=== PATIENT | female | born 1975 | race Caucasian/White ===

== ENCOUNTER 2022-10-08 16:08 | Outpatient (CLI) | payer OTHER, SELFPAY ==
[2022-10-08 11:12] LABS: Albumin* 4.5 g/dL (3.3-5.0); Chloride* 103 mmol/L (96-114); Sodium* 139 mmol/L (135-149)
[2022-10-08 11:13] LABS: Potassium* 4.4 mmol/L (3.6-5.1)
[2022-10-08 11:15] LABS: Alanine Aminotransferase* 20 U/L (4-35); Alkaline Phosphatase* 54 U/L (40-150); Aspartate Amino Transferase* 26 U/L (12-35); Bilirubin Total* 0.6 mg/dL (0.1-1.5); Blood Urea Nitrogen* 11 mg/dL (5-24); Calcium* 9.4 mg/dL (8.4-10.6); Carbon Dioxide* 28 mmol/L (20-32); Cholesterol* 186 mg/dL (90-199); Creatinine* 0.8 mg/dL (0.5-1.5); Estimated Glomerular Filt Rate 93 ml/min; Glucose* 103 mg/dL (60-115); Total Protein* 7.1 g/dL (6.0-8.3); Triglycerides* 86 mg/dL (40-149)
[2022-10-08 11:16] LABS: HDL Cholesterol* 85 mg/dL (>=50); LDL Cholesterol Calculated 84 mg/dL (<100)
== END 2022-10-08 16:09 | disposition home or self-care (01) ==
PROVIDERS: PCP Family Medicine; Visit Provider Family Medicine
DX: Z01.419 Encounter for gynecological examination (general) (routine) without abnormal findings (principal); R73.01 Impaired fasting glucose; Z13.6 Encounter for screening for cardiovascular disorders
CPT/HCPCS: 80053; 80061

== ENCOUNTER 2022-11-11 11:59 | Outpatient (CLI) | payer OTHER, SELFPAY ==
--- NOTE | 2022-11-11 13:53 | W.ANESCHARGE ---
Anesthesia Charges Start Date/Time Anesthesia Start Date: 11/11/22 Anesthesia Start Time: 13:24 Stop Date/Time Anesthesia Stop Date: 11/11/22 Anesthesia Stop Time: 13:49
--- NOTE | 2022-11-11 14:14 | W.ANESCHARGE ---
Anesthesia Charges Start Date/Time Anesthesia Start Date: 11/11/22 Anesthesia Start Time: 13:24 Stop Date/Time Anesthesia Stop Date: 11/11/22 Anesthesia Stop Time: 13:49
== END 2022-11-11 12:00 | disposition home or self-care (01) ==
PROVIDERS: PCP Family Medicine; Visit Provider Surgery
DX: Z12.11 Encounter for screening for malignant neoplasm of colon (principal); K63.5 Polyp of colon; K64.9 Unspecified hemorrhoids
CPT/HCPCS: 00811; 45385; 88305; 99153; J1200; J2250; J3010; J3490

== ENCOUNTER 2022-12-21 14:28 | Outpatient (CLI) | payer OTHER, SELFPAY ==
--- NOTE | 2022-12-21 14:40 | CRLHL7_ITS ---
For Patients: As a result of the Cures Act, medical imaging exams and procedure reports are released immediately into your electronic medical record. You may view this report before your referring provider. If you have questions, please contact your health care provider. BILATERAL SCREENING MAMMOGRAM WITH COMPUTER-AIDED DETECTION AND TOMOSYNTHESIS TECHNIQUE: CC and MLO views were obtained. These mammographic images have been obtained using full-field digital technique. These mammographic images were interpreted with the benefit of computer-aided detection. Breast Tomosynthesis was used in this interpretation. COMPARISON FILM: 03/03/21, 08/22/19, 08/01/18. FINDINGS: The breasts are extremely dense, which lowers the sensitivity of mammography IMPRESSION: There is no radiographic evidence for malignancy. ASSESSMENT: BI-RADS Category 2: Benign RECOMMENDATION: Routine screening mammogram in 1 year. A lay language report of this examination will be provided to the patient. Byron Kamara M.D. Diagnostic Radiologist [email or web address] ANDREY/rao / be/Dictated by: Byron Kamara MD @ 12/22/2022 12:38:00 PM (Electronically Signed)
== END 2022-12-21 14:29 | disposition home or self-care (01) ==
LOC: MAMMO 14:29
PROVIDERS: PCP Family Medicine; Visit Provider Family Medicine
DX: Z12.31 Encounter for screening mammogram for malignant neoplasm of breast (principal); R92.2 Inconclusive mammogram
CPT/HCPCS: 77063; 77067

== ENCOUNTER 2023-11-08 08:32 | Outpatient (CLI) | payer BC, SELFPAY ==
--- OUTSIDE RECORDS SUMMARY | 2023-11-08 08:34 | XMS_ITS | Clinical Summary ---
Author Name Unknown Organization [facility] Address [place], [place] [address] Care Team Providers Care Energy Economist Name Role Phone Pcp, No Unavailable Unavailable Sumanth Sharp MD Primary Care Provider [phone] Allergies Active Allergy Reactions Criticality Noted Date Comments Sulfa (Sulfonamide Antibiotics) Rash Low 07/12 Medications Medication Sig Dispensed Refills Start Date End Date Status HYDROcodone-acetamin ophen, 5-325 mg, (NORCO) per tabletIndications:Ri ght ureteral laceration, initial encounter Take 1-2 tablets by mouth every 4 hours if needed for Pain (For moderate pain.) Max acetaminophen dose: 4000 mg in 24 hrs. 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 Right ureteral laceration 06/29/2016 [place] (hard of hearing) 06/29/2016 Menorrhagia S/P hysterectomy 06/29/2016 Anemia 06/29/2016 Leukocytosis 06/29/2016 Family History Medical History Relation Name Comments Cancer Father unsure Arthritis Mother Hyperlipidemia Mother Hypertension Mother Relation Name Status Comments Father Mother Social History Tobacco Use Types Packs/Day Years Used Date Smoking Tobacco: Never Smokeless Tobacco: Never Tobacco Cessation:Counseling Given: Yes Alcohol Use Standard Drinks/Week Comments Yes 0 (1 standard drink = 0.6 oz pur e alcohol) 1 glass wine nightly Sex and Gender Information Value Date Recorded Sex Assigned at Not on file Gender Identity Not on file Sexual Orientation Not on file Obstetrics History Para Term AB IAB SAB Ectopic Multiple Livin g Live Births 2 2 2 Date Outcome GA Total Labor Labor/2nd/3rd Weight Sex Delivery Anes PTL Linsey A1 A5 Name Cl in M Farrah ng M Farrah ng Last Filed Vital Signs Vital Sign Reading Time Taken Comments Blood Pressure 110/74 03/01/2017 3:40 PM CDT Pulse 63 03/01/2017 3:40 PM CDT Temperature 37 ??C (98.6 ??F) 03/01/2017 3:40 PM CDT Respiratory Rate 16 07/09/2016 1:00 PM CDT Oxygen Saturation 99% 03/01/2017 3:40 PM CDT Inhaled Oxygen Concentration - - Weight 66.1 kg (145 lb 12.8 oz) 03/01/2017 3:40 PM CDT Height 162.6 cm (5' 4.02) 07/09/2016 8:46 AM CD T Body Mass Index 25.01 07/09/2016 8:46 AM CDT Plan of Treatment Health Maintenance Due Date Last Done Comments COVID-19 vaccine series (#1) 05/27/1977 Tdap 1987 Depression screening for age 12+ 1988 HIV for age 15-65 1991 BMI (ht and wt on same day) for age 18+ 1994 Hepatitis C screening for ag e 18-79 1994 Tetanus booster 1996 Pap test for age 21-65 04/08/2018 5, 04/08/2015 Colonoscopy through age 75 2021 Lipids for age 45-75 2021 Mammogram for age 45-75 2021 Influenza for age 9-49 06/10/2023 Pneumococcal series for age 6-64 Aged Out No longer eligible b ased on patient's age to complete this topic Advance Directives Latest Code Status on File Code Status Date Activated Date Inactivated Comments Full Code 06/29/2016 9:16 PM 07/01/2016 3:28 PM Care Teams Energy Economist Relationship Specialty Start Date End Date Sumanth Sharp MD . PCP - General Family Practice 07/13/16 Pcp, No . 11/09/13
--- NOTE | 2023-11-08 08:45 | CRLHL7_ITS ---
For Patients: As a result of the Cures Act, medical imaging exams and procedure reports are released immediately into your electronic medical record. You may view this report before your referring provider. If you have questions, please contact your health care provider. DIGITAL DIAGNOSTIC BILATERAL MAMMOGRAM USING TOMOSYNTHESIS AND COMPUTER-AIDED DETECTION RIGHT BREAST ULTRASOUND CLINICAL HISTORY: RIGHT breast lump. COMPARISON: 08/01/2018, 08/22/2019, 03/03/2021, 12/21/2022. TECHNIQUE: Digital BILATERAL mammogram in four projections. Tomosynthesis and CAD utilized. Real-time ultrasound imaging of BILATERAL breast with imaging documentation. Scanning was performed by both the technologist and the radiologist. BREAST COMPOSITION: The breasts are heterogeneously dense, which may obscure small masses. FINDINGS: 3D CC/MLO BILATERAL mammogram images submitted. Nodular density is present within the medial LEFT breast without architectural distortion. No suspicious findings RIGHT breast. No adenopathy or suspicious calcifications. Targeted LEFT breast ultrasound performed. At 8 o`clock 4 cm from the nipple there is a solid hypoechoic nodule measuring 9 x 4 x 7 millimeters. Targeted RIGHT breast ultrasound performed. At 12 o`clock 3 cm from the nipple there is a hypoechoic nodule measuring 8 millimeters. Surrounding dense tissue noted. IMPRESSION: Indeterminate hypoechoic nodular structures bilaterally. RECOMMENDATIONS: Ultrasound-guided core needle biopsy of each lesion. Results and recommendations discussed with the patient. BI-RADS Category 4: Suspicious A lay language report of this examination will be provided to the patient. Dictated by Byron Kamara MD @ 11/08/2023 9:52:08 AM jj/Dictated by: Byron Kamara MD @ 11/08/2023 9:52:00 AM (Electronically Signed)
--- NOTE | 2023-11-08 09:15 | CRLHL7_ITS ---
For Patients: As a result of the Cures Act, medical imaging exams and procedure reports are released immediately into your electronic medical record. You may view this report before your referring provider. If you have questions, please contact your health care provider. PLEASE SEE DIGITAL DIAGNOSTIC BILATERAL MAMMOGRAM PERFORMED SAME DAY CRL:[email or web address] timmons/Dictated by: Byron Kamara MD @ 11/08/2023 9:52:00 AM (Electronically Signed)
== END 2023-11-08 08:33 | disposition home or self-care (01) ==
LOC: MAMMO 08:32
PROVIDERS: PCP Family Medicine; Visit Provider Family Medicine
DX: N63.10 Unspecified lump in the right breast, unspecified quadrant (principal); N61.0 Mastitis without abscess; L53.9 Erythematous condition, unspecified; R92.2 Inconclusive mammogram
CPT/HCPCS: 76642; 77066; G0279

== ENCOUNTER 2023-11-14 08:59 | Outpatient (CLI) | payer BC, SELFPAY ==
--- OUTSIDE RECORDS SUMMARY | 2023-11-14 09:01 | XMS_ITS | Clinical Summary ---
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 PCP - General Family Practice 07/13/16 Pcp, No . 11/09/13
--- NOTE | 2023-11-14 09:15 | CRLHL7_ITS ---
For Patients: As a result of the Century Cures Act, medical imaging exams and procedure reports are released immediately into your electronic medical record. You may view this report before your referring provider. If you have questions, please contact your health care provider. ULTRASOUND-GUIDED BREAST BIOPSY AND POST-BIOPSY DIGITAL MAMMOGRAM FOR BIOPSY MARKER PLACEMENT CLINICAL HISTORY: Indeterminate hypoechoic nodular density. COMPARISON STUDIES: 11/08/2023. TECHNIQUE: Real-time ultrasound with image documentation was used for targeting the breast lesion. Core biopsy specimens were obtained using an automated gun with an 18-gauge biopsy needle. Post-biopsy CC and ML digital mammograms were obtained to document position of the biopsy marker. CONSENT and TIME OUT: The procedure, risks, and alternatives were explained to the patient and a consent was signed. [place] Protocol was followed including pre-procedure verification that relevant information/documentation was available, reviewed and properly matched to the patient; consent accurate and complete; and equipment and supplies available. Time Out was conducted just prior to starting procedure to verify the four required elements: patient identity, correct side/site marked (if applicable), procedure, relevant images/results properly labeled and displayed (if applicable). PROCEDURE: The patient was positioned supine on the ultrasound table. The breast was prepped with ChloraPrep. 8 cc of 1 percent lidocaine used for local anesthesia. Core samples were obtained. A sterile metal biopsy clip was placed percutaneously to jf the lesion position within the breast. The specimens were placed in 10% formalin and sent to the pathology department. Pressure was held on the biopsy site until all bleeding subsided. The skin incision was closed with Steri-Strips. An ice pack was positioned over the biopsy site. Post-biopsy instructions were reviewed with the patient, and a written copy was given to her. LATERALITY: LEFT breast. LESION: Hypoechoic nodular structure measuring 9 millimeters at 8 o`clock 4 cm from the nipple. SUSPICION FOR MALIGNANCY: Medium. NUMBER OF SAMPLES: 5. BIOPSY CLIP SHAPE: Oval. PROXIMITY OF CLIP TO TARGET: Within the lesion. IMPRESSION: Ultrasound-guided breast biopsy. When the pathology report is available, an addendum to this report will be made. ACR not applicable Dictated by Byron Kamara MD @ 11/15/2023 12:53:51 PM jj/Dictated by: Byron Kamara MD @ 11/15/2023 12:53:00 PM (Electronically Signed)
--- NOTE | 2023-11-14 10:15 | CRLHL7_ITS ---
For Patients: As a result of the Century Cures Act, medical imaging exams and procedure reports are released immediately into your electronic medical record. You may view this report before your referring provider. If you have questions, please contact your health care provider. ULTRASOUND-GUIDED BREAST BIOPSY AND POST-BIOPSY DIGITAL MAMMOGRAM FOR BIOPSY MARKER PLACEMENT CLINICAL HISTORY: Indeterminate palpable nodular density RIGHT breast. COMPARISON STUDIES: 11/08/2023. TECHNIQUE: Real-time ultrasound with image documentation was used for targeting the breast lesion. Core biopsy specimens were obtained using an automated gun with an 18-gauge biopsy needle. Post-biopsy CC and ML digital mammograms were obtained to document position of the biopsy marker. CONSENT and TIME OUT: The procedure, risks, and alternatives were explained to the patient and a consent was signed. [place] Protocol was followed including pre-procedure verification that relevant information/documentation was available, reviewed and properly matched to the patient; consent accurate and complete; and equipment and supplies available. Time Out was conducted just prior to starting procedure to verify the four required elements: patient identity, correct side/site marked (if applicable), procedure, relevant images/results properly labeled and displayed (if applicable). PROCEDURE: The patient was positioned supine on the ultrasound table. The breast was prepped with ChloraPrep. 8 cc of 1 percent lidocaine used for local anesthesia. Core samples were obtained. A sterile metal biopsy clip was placed percutaneously to jf the lesion position within the breast. The specimens were placed in 10% formalin and sent to the pathology department. Pressure was held on the biopsy site until all bleeding subsided. The skin incision was closed with Steri-Strips. An ice pack was positioned over the biopsy site. Post-biopsy instructions were reviewed with the patient, and a written copy was given to her. LATERALITY: RIGHT breast. LESION: Heterogeneous nodular region of tissue at 12 o`clock 3 cm from the nipple. SUSPICION FOR MALIGNANCY: Medium. NUMBER OF SAMPLES: 5. BIOPSY CLIP SHAPE: Oval. PROXIMITY OF CLIP TO TARGET: Within the lesion. IMPRESSION: Ultrasound-guided breast biopsy. When the pathology report is available, an addendum to this report will be made. ACR not applicable Dictated by Byron Kamara MD @ 11/15/2023 12:52:10 PM jj/Dictated by: Byron Kamara MD @ 11/15/2023 12:52:00 PM (Electronically Signed)
--- NOTE | 2023-11-14 10:45 | CRLHL7_ITS ---
For Patients: As a result of the Century Cures Act, medical imaging exams and procedure reports are released immediately into your electronic medical record. You may view this report before your referring provider. If you have questions, please contact your health care provider. PLEASE SEE ULTRASOUND-GUIDED LEFT BREAST BIOPSY PERFORMED SAME DAY CRL:[email or web address] timmons/Dictated by: Byron Kamara MD @ 11/15/2023 12:53:00 PM (Electronically Signed)
--- NOTE | 2023-11-14 11:00 | CRLHL7_ITS ---
For Patients: As a result of the Century Cures Act, medical imaging exams and procedure reports are released immediately into your electronic medical record. You may view this report before your referring provider. If you have questions, please contact your health care provider. PLEASE SEE ULTRASOUND-GUIDED RIGHT BREAST BIOPSY PERFORMED SAME DAY CRL:[email or web address] timmons/Dictated by: Byron Kamara MD @ 11/15/2023 12:52:00 PM (Electronically Signed)
== END 2023-11-14 09:00 | disposition home or self-care (01) ==
LOC: US 08:59
PROVIDERS: PCP Family Medicine; Visit Provider Family Medicine
DX: N63.20 Unspecified lump in the left breast, unspecified quadrant (principal); N63.11 Unspecified lump in the right breast, upper outer quadrant; D24.2 Benign neoplasm of left breast; R92.8 Other abnormal and inconclusive findings on diagnostic imaging of breast
CPT/HCPCS: 19083; 77065; 88305; A4648; A4649

== ENCOUNTER 2024-08-10 09:28 | Outpatient (CLI) | payer BC, SELFPAY ==
--- OUTSIDE RECORDS SUMMARY | 2024-08-10 09:30 | XMS_ITS | Clinical Summary ---
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 Right ureteral laceration 06/29/2016 [place] (hard of hearing) 06/29/2016 Menorrhagia S/P hysterectomy [...] Outcome GA Total Labor Labor/2nd/3rd Weight Sex Type Anes PTL Linsey A1 A5 Name Clin M Living M Living Last Filed Vital Signs Vital Sign Reading [...] Health Maintenance Due Date Last Done Comments Tdap 1987 Depression screening for age 12+ 1988 HIV for age 15-65 1991 BMI (ht and wt on same day) for age 18+ 1994 Hepatitis C screening for ag e 18-79 1994 Tetanus booster 1996 Pap test for age 21-65 04/08/2018 5, 04/08/2015 Colonoscopy through age 75 2021 Lipids for age 45-75 2021 Mammogram for age 45-75 2021 COVID-19 vaccine series (2023- season) 2024 Influenza for age 9-49 06/10/2024 Pneumococcal series for age 6-64 Aged Out No longer eligible b ased on patient's age to complete this topic Procedures Procedure Name Priority Date/Time Associated Diagnosis Comments WINE MAKER THIN PREP PAP SCREEN IMAGED Routine 04/08/2015 7:20 PM CDT from Last 3 Months or Most Recently Relevant to Health Maintenance Results * WINE MAKER THIN PREP PAP SCREEN IMAGED (04/08/2015 7:20 PM CDT) WINE MAKER CYTOLOGY See Anatomic Pathology case 04/13/2015 8:00 PM CDT [facility] Specimen (specimen) (Cervical/Vagina l) Client Collect / Unknown 04/08/2015 7:20 PM CDT 04/08/2015 7:20 PM CDT Sumanth Sharp MD PATHOLOGY/CYTOLOGY [facility] [address] [place] [address], from Last 3 Months or Most Recently Relevant to Health Maintenance Advance Directives * Full Code (Latest Code Status on File) Date Activated Date Inactivated Comments 06/29/2016 9:16 PM 07/01/2016 3:28 PM Care Teams Resident Care Supervisor Relationship Specialty Start Date End Date Sumanth Sharp MD . PCP - General Family Practice 07/13/16 Pcp, No . 11/09/13
--- NOTE | 2024-08-10 09:45 | CRLHL7_ITS ---
For Patients: As a result of the Century Cures Act, medical imaging exams and procedure reports are released immediately into your electronic medical record. You may view this report before your referring provider. If you have questions, please contact your health care provider. DIGITAL DIAGNOSTIC BILATERAL MAMMOGRAM USING TOMOSYNTHESIS AND COMPUTER-AIDED DETECTION LEFT BREAST ULTRASOUND CLINICAL HISTORY: LEFT breast lump. COMPARISON: 11/08/23, 12/21/22, 03/03/21. TECHNIQUE: Digital BILATERAL mammogram in four projections with computer-aided detection. Tomosynthesis was used in this interpretation. Real-time ultrasound imaging of LEFT breast with imaging documentation. BREAST COMPOSITION: The breasts are extremely dense, which lowers the sensitivity of mammography. FINDINGS: 3D CC/MLO BILATERAL mammogram images submitted. Post biopsy changes are present bilaterally. No suspicious mass. No architectural distortion or suspicious calcifications. No adenopathy. Targeted LEFT breast ultrasound performed at 12 o`clock 4 cm from the nipple. In this location, there is dense fibroglandular tissue. No fluid collection or mass. IMPRESSION: No suspicious findings. No evidence of malignancy. RECOMMENDATIONS: Annual BILATERAL screening mammography. Results and recommendations discussed with the patient. BI-RADS Category 2: Benign A lay language report of this examination will be provided to the patient. Dictated by Byron Kamara MD @ 08/10/2024 10:38:14 AM /Dictated by: Byron Kamara MD @ 08/10/2024 10:41:00 AM (Electronically Signed)
--- NOTE | 2024-08-10 10:15 | CRLHL7_ITS ---
For Patients: As a result of the Cures Act, medical imaging exams and procedure reports are released immediately into your electronic medical record. You may view this report before your referring provider. If you have questions, please contact your health care provider. PLEASE SEE DIGITAL DIAGNOSTIC BILATERAL MAMMOGRAM PERFORMED SAME DAY CRL:[email or web address] timmons/Dictated by: Byron Kamara MD @ 08/10/2024 10:41:00 AM (Electronically Signed)
== END 2024-08-10 09:29 | disposition home or self-care (01) ==
LOC: MAMMO 09:28
PROVIDERS: PCP Family Medicine; Visit Provider Surgery
DX: N63.20 Unspecified lump in the left breast, unspecified quadrant (principal)
CPT/HCPCS: 76642; 77066; G0279

== ENCOUNTER 2024-12-26 07:45 | Outpatient (CLI) | payer BC, SELFPAY | END 2024-12-26 07:46 | disposition home or self-care (01) | PROVIDERS: PCP Family Medicine; Visit Provider Family Medicine | DX: R63.5 Abnormal weight gain (principal); R23.2 Flushing; R73.01 Impaired fasting glucose; Z13.6 Encounter for screening for cardiovascular disorders | CPT/HCPCS: 80053; 80061; 83001; 84443 ==